=== PATIENT | female | born 1955 | race Caucasian/White ===

== ENCOUNTER 2025-02-27 07:48 | Inpatient (IN) | payer OTHER ==
[~2025-02-27] VITALS: Ht 162.6 cm; Wt 87.5 kg
--- NOTE | 2025-02-27 08:03 | ED.PDOC ---
History of Present Illness HPI Comments This is a 70-year-old female who comes in with chief complaint of status post fall in the bedroom today. Patient states that approximately 1 hour prior to arrival she was coming out of the bathroom and tripped on a rug in her bedroom. This was considered to be a mechanical fall. She states that she did not lose consciousness or did not have any syncope. She states that the right hip pain is a 10/10 at this time. She denies any head trauma and is currently on no blood thinner. According to the paramedics, when they arrived, the patient was still laying on the floor. Chief Complaint: Fall Injury Time Seen by MD: 07:52 Reviewed Notes: Nurses Notes, Manager Beauty Notes, Medications, Allergies (No allergies to medications) Allergies: Coded Allergies: NO KNOWN ALLERGIES (Verified , 06/27/09) Information Source: Patient, Emergency Med Personnel Mode of Arrival: EMS Severity: Moderate Timing: Hours (1 hour prior to arrival) Duration: Since onset Prehospital treatment: Chain Saw Operator Location: Right hip pain with decreased range of motion Past Medical History PAST MEDICAL HISTORY: Cancer (Previous history of breast cancer), DM, High Lipids, HTN Surgical History: Hysterectomy, Tonsillectomy Surgical History (Other): Right lumpectomy on the breast, neck surgery CAR PILOT History: No Pertinent CAR PILOT History Family History Family History: Family hx of DM, Family hx of heart paxton Family History (Other): Dementia Social History Smoker: Quit Greater Than 1 Year Alcohol: Occasionally Drugs: Denies Drug Use Lives In: Home Constitutional: denies: chills, diaphoresis, fatigue, fever, malaise, sweats, weakness, others EENTM: denies: blurred vision, double vision, ear bleeding, ear discharge, ear drainage, ear pain, ear ringing, eye pain, eye redness, hearing loss, mouth pain, mouth swelling, nasal discharge, nose bleeding, nose congestion, nose pain, photophobia, tearing, throat pain, throat swelling, voice changes, others Respiratory: denies: cough, hemoptysis, orthopnea, SOB at rest, shortness of breath, SOB with excertion, stridor, wheezing, others Cardiovascular: denies: chest pain, dizzy spells, diaphoresis, Dyspnea on ex ertion, edema, irregular heart beat, left arm pain, lightheadedness, palpitations, PND, syncope, others Gastrointestinal: denies: abdomen distended, abdominal pain, blood streaked bowels, constipated, diarrhea, dysphagia, difficulty swallowing, hematemesis, melena, nausea, poor appetite, poor fluid intake, rectal bleeding, rectal pain, vomiting, others Genitourinary: denies: abnormal vagina bleeding, burning, dyspareunia, dysuria, flank pain, frequency, hematuria, incontinence, pain, , vagina discharge, urgency, others Neurological: denies: dizziness, fainting, headache, left sided numbness, left sided weakness, numbness, paresthesia, pre-existing deficit, right sided numbness, right sided weakness, seizure, speech problems, tingling, tremors, weakness, others Musculoskeletal: reports: others (Right hip pain with decreased range of motion); denies: back pain, gout, joint pain, joint swelling, muscle pain, muscle stiffness, neck pain Integumetry: denies: bruises, change in color, change in hair/nails, dryness, laceration, lesions, lumps, rash, wounds, others Allergic/Immunocompromised: denies: Difficulty Healing, Frequent Infections, Hives, Itching, others Hematologic/Lymphatic: denies: anemia, blood clots, easy bleeding, easy bruising, swollen glands, others Endocrine: denies: excessive hunger, excessive sweating, excessive thirst, excessive urination, flushing, intolerance to cold, intolerance to heat, unexplained weight gain, unexplained weight loss, others Psychiatric: denies: anxiety, bipolar disorder, depression, hopeless, panic disorder, schizophrenia, sleepless, suicidal, others Physical Exam General Appearance: Moderate Distress HEENT: Normal ENT Inspection, Pharynx Normal, TMs Normal Neck: Full Range of Motion, Non-Tender, Normal, Normal Inspection Respiratory: Chest Non-Tender, Lungs Clear, No Accessory Muscle Use, No Respiratory Distress, Normal Breath Sounds Cardiovascular: No Edema, No JVD, No Murmur, No Gallop, Normal Peripheral Pulses, Regular Rate/Rhythm Breast Exam: Deferred Gastrointestinal: No Organomegaly, Non Tender, No Pulsatile Mass, Normal Bowel Sounds, Soft Genitalia: Deferred Pelvic: Deferred Rectal: Deferred Extremities: No calf tenderness, Normal capillary refill, No pedal edema Musculoskeletal : Location: Right Extremity Location: Hip Apperance: Limited ROM, Tenderness: Moderate Neurologic: Alert, dental office assistant II-XII nml as Tested, No Motor Deficits, Normal Affect, Normal Mood, No Sensory Deficits Cerebellar Function: Normal Reflexes: Normal Skin: Dry, Normal Color, Warm Lymphatic: No Adenopathy Was a procedure done? Was a procedure done?: No Differential Dx Considerations may include: Fracture, strain, contusion X-Ray, Labs, Meds, VS Vital Signs Date Time Temp Pulse Resp B/P (MAP) Pulse Ox O2 Delivery O2 Flow Rate FiO2 02/27/25 08:47 64 12 97 Room Air* 0 21 02/27/25 08:46 97.1 64 12 161/70 (100) 98 97.1 02/27/25 08:37 63 11 161/70 02/27/25 07:54 97.7 68 15 164/85 98 97.7 Lab Test 02/27/25 08:15 Range/Units White Blood Count 6.6 4.4-10.8 10^3/uL Red Blood Count 5.67 H 4.0-5.20 10^6/uL Hemoglobin 16.5 H 12.2-16.2 g/dL Hematocrit 49.9 H 36.0-46.0 % Mean Corpuscular Volume 88.0 80.0-100.0 fL Mean Corpuscular Hemoglobin 29.0 28.0-32.0 pg Mean Corpuscular Hemoglobin Concent 33.0 32.0-36.0 g/dL Red Cell Distribution Width 15.7 H 11.8-14.3 % Platelet Count 271 140-450 10^3/uL Mean Platelet Volume 7.9 6.9-10.8 fL Neutrophils (%) (Auto) 82.0 H 37.0-80.0 % Lymphocytes (%) (Auto) 10.1 10.0-50.0 % Monocytes (%) (Auto) 5.3 0.0-12.0 % Eosinophils (%) (Auto) 2.0 0.0-7.0 % Basophils (%) (Auto) 0.6 0.0-2.0 % Neutrophils # (Auto) 5.4 1.6-8.6 10 ^3/uL Lymphocytes # (Auto) 0.7 0.4-5.4 10 ^3/uL Monocytes # (Auto) 0.3 0-1.3 10 ^3/uL Eosinophils # (Auto) 0.1 0-0.8 10 ^3/uL Basophils # (Auto) 0 0-0.2 10 ^3/uL Nucleated Red Blood Cells 0.2 % Prothrombin Time 10.8 9.3-11.8 sec Prothrombin Time INR 1.02 0.9-1.15 Activated Partial Thromboplast Time 28.5 24.5-34.5 SEC Sodium Level 144 136-145 mmol/L Potassium Level 4.3 3.5-5.1 mmol/L Chloride Level 111 H 98-107 mmol/L Carbon Dioxide Level 20 20-31 mmol/L Anion Gap 13 5-15 Blood Urea Nitrogen 11 9-23 mg/dL Creatinine 1.09 H 0.550-1.02 mg/dL Glomerular Filtration Rate Calc 54 >90 mL/min BUN/Creatinine Ratio 10.1 10.0-20.0 Serum Glucose 146 H 74-106 mg/dL Calcium Level 9.9 8.7-10.4 mg/dL Current Medications Medications (Trade) Dose Ordered Sig/Kaveh Route Start Time Stop Time Status Last Admin Ondansetron HCl (Zofran) 4 mg ONCE ONCE IV 02/27/25 08:00 02/27/25 08:01 DC 02/27/25 08:37 Morphine Sulfate 4 mg ONCE ONCE IV 02/27/25 08:00 02/27/25 08:01 DC 02/27/25 08:37 IV Hep-Lock is being established The patient was given morphine 4 mg IV push for the pain The patient is given Zofran 4 mg IV push for the nausea PROCEDURE(s): RHIP - R HIP COMPLETE XRAY IMPRESSION: : 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 Nondisplaced fracture of the proximal femur with extension into the lesser trochanter. At this time the patient's CBC is within normal limits The chemistry panel is within normal limits. We are contacting the hospitalist for admission. We are not sure if this patient will need orthopedic surgery done so we are contacting [facility] to find out who we would be calling for the orthopedic surgery consult The patient will be admitted at to our facility under med surge We did speak with Dr. Contreras and he will be consulting on the patient. The patient is being admitted at this time Images Reviewed?: Images reviewed and evaluated by me Time of 1ST Reevaluation: 08:06 Reevaluation 1ST: Improved Time of 2ND Reevaluation: 08:45 Reevaluation 2ND: Improved Patient Education/Counseling: Diagnosis, Treatment, Prognosis Family Education/Counseling: No Family Present SEPSIS Sepsis Screen Physician Orders R Hip Complete Xray (02/27/25 07:52) Urinalysis (02/27/25 07:52) Heplock Iv (02/27/25 07:52) * Orthopedic Consult (02/27/25 09:11) Vital Signs Date Time Temp Pulse Resp B/P (MAP) Pulse Ox O2 Delivery O2 Flow Rate FiO2 02/27/25 08:47 64 12 97 Room Air* 0 21 02/27/25 08:46 97.1 64 12 161/70 (100) 98 97.1 02/27/25 08:37 63 11 161/70 02/27/25 07:54 97.7 68 15 164/85 98 97.7 Laboratory Tests Test 02/27/25 08:15 White Blood Count 6.6 10^3/uL (4.4-10.8) Medications Medications Dose Ordered Sig/Kaveh Route Start Time Stop Time Status Last Admin Dose Admin Morphine Sulfate 4 mg ONCE ONCE IV 02/27/25 08:00 02/27/25 08:01 DC 02/27/25 08:37 Ondansetron HCl 4 mg ONCE ONCE IV 02/27/25 08:00 02/27/25 08:01 DC 02/27/25 08:37 Departure 1 Departure Time of Disposition: 08:45 Impression: Primary Impression: Closed right hip fracture Qualified Codes: S72.001A - Fracture of unspecified part of neck of right femur, initial encounter for closed fracture Additional Impression: History of fall Disposition: 09 ADMITTED INPATIENT Admit to: Med Surg Condition: Fair Critical Care Note Critical Care Time?: No Stability Stability form required: Yes Unstable for transfer: ED Physician Assesment (Clinical assesment) Heart Score Heart Score: Heart Score Response (Comments) Value History N/A 0 EKG N/A 0 Age N/A 0 Risk Factors N/A 0 Troponin N/A 0 Total 0 I personally scribed for JORGE L CROCKER MD ([email or web address]) on 02/27/25 at 08:42. Electronically submitted by Nona Pena ([email or web address]). JORGE L CROCKER MD Feb 27, 2025 08:03
[2025-02-27 08:27] LABS: Hematocrit 49.9 % (36.0-46.0); Hemoglobin 16.5 g/dL (12.2-16.2); Mean Corpuscular Hemoglobin 29.0 pg (28.0-32.0); Mean Corpuscular Volume 88.0 fL (80.0-100.0); Nucleated Red Blood Cells % 0.2 %
[2025-02-27 08:33] LABS: Potassium 4.3 mmol/L (3.5-5.1); Sodium 144 mmol/L (136-145)
[2025-02-27 08:34] LABS: Anion Gap 13 (5-15); Calcium 9.9 mg/dL (8.7-10.4); Carbon Dioxide 20 mmol/L (20-31); Chloride 111 mmol/L (98-107)
--- NOTE | 2025-02-27 08:34 | DVH ---
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 Nondisplaced fracture of the proximal femur with extension into the lesser trochanter.
[2025-02-27] MEDS: MORPHINE SULFATE 4 MG/ML SYR/VIAL IV ONE ×2 (08:37→15:58)
[2025-02-27] MEDS: ONDANSETRON HCL 4 MG/2 ML VIAL IV ONE ×2 (08:37→15:57)
[2025-02-27 08:39] LABS: BUN/Creatinine Ratio 10.1 (10.0-20.0); Blood Urea Nitrogen 11 mg/dL (9-23); Glucose 146 mg/dL (74-106)
[2025-02-27 08:42] LABS: INR 1.02 (0.9-1.15); Partial Thromboplastin Time 28.5 SEC (24.5-34.5); Prothrombin Time 10.8 sec (9.3-11.8)
[2025-02-27 08:47] VITALS: PULSE 64; RESP 12; O2SAT 97
--- NOTE | 2025-02-27 10:42 | DVHHP2 ---
Admitting Diagnosis: Right Femur Fracture History of Present Illness HPI Patient is a 70-year-old female with past medical history of hypertension, history of breast cancer status post partial right mastectomy, hyperlipidemia who presents due to right hip pain after a fall in the bathroom. Patient states that she tripped over the bathroom rug. She denied losing consciousness or having syncope. Imaging in the ER was notable for nondisplaced fracture of the proximal femur with extension into the lesser trochanter. Patient was admitted for orthopedic evaluation. Past Medical History Cardiac: HTN Review of Systems Constitutional: No symptom reported Cardiovascular: No symptom reported Gastrointestinal: No symptom reported Musculoskeletal: Leg pain H&P Exam Vital Signs Vital Signs Date Time Temp Pulse Resp B/P (MAP) Pulse Ox O2 Delivery O2 Flow Rate FiO2 02/27/25 10:00 69 12 147/74 (98) 98 02/27/25 08:47 Room Air* 0 21 02/27/25 08:46 97.1 97.1 General Appeara: Well developed Cardiovascular/Chest: Normal Rhythm SEPSIS Sepsis Screen Date sepsis recognized/suspect: Feb 27, 2025 Time Sepsis recognized/suspect: 1020 Recent Procedure: No On Antibiotic Therapy: No Respiratory Rate >20: No Heart Rate >90: No Temp<36 C (96.8 F) or >38.3 C: No SBP <90 or MAP <65 mmHG: No New Acute Mental Status Change: No Is the patient on CPAP, BIPAP,: No Physician Orders R Hip Complete Xray (02/27/25 07:52) Urinalysis (02/27/25 07:52) Heplock Iv (02/27/25 07:52) * Orthopedic Consult (02/27/25 09:11) Admit (02/27/25 10:34) Nitroglycerin Sublingual (Ntrostat Subli (02/27/25 10:45) Morphine Sulfate Injection (02/27/25 10:45) Stat Ekg For Chest Pain (02/27/25 10:34) Notify Md Of Changes From Base (02/27/25 10:34) Paper Hanger For 24 Hours (02/27/25 10:34) Emergency Dysrhythmia Protocol (02/27/25 10:34) Rhythm Strips Once Every Shift (02/27/25 10:34) Oxygen By Nasal Cannula (02/27/25 10:34) Complete Blood Count (02/28/25 05:00) Complete Blood Count (03/01/25 05:00) Complete Blood Count (03/02/25 05:00) Complete Blood Count (03/03/25 05:00) Comprehensive Metabolic Panel (02/28/25 05:00) Comprehensive Metabolic Panel (03/01/25 05:00) Comprehensive Metabolic Panel (03/02/25 05:00) Comprehensive Metabolic Panel (03/03/25 05:00) Regular Diet (02/27/25 Lunch) Pt Request For Service (02/27/25 10:36) Pharmacy To Reconcile Home Med (02/27/25 10:36) Npo After Midnight (02/27/25 10:39) * Drafter Apprentice Consult (02/27/25 ) Npo (Nothing By Mouth) Diet (02/28/25 Breakfast) Vital Signs Date Time Temp Pulse Resp B/P (MAP) Pulse Ox O2 Delivery O2 Flow Rate FiO2 02/27/25 10:00 69 12 147/74 (98) 98 02/27/25 09:54 71 12 160/68 02/27/25 08:47 64 12 97 Room Air* 0 21 02/27/25 08:46 97.1 64 12 161/70 (100) 98 97.1 02/27/25 08:37 63 11 161/70 02/27/25 07:54 97.7 68 15 164/85 98 97.7 Laboratory Tests Test 02/27/25 08:15 White Blood Count 6.6 10^3/uL (4.4-10.8) Medications Medications Dose Ordered Sig/Kaveh Route Start Time Stop Time Status Last Admin Dose Admin Morphine Sulfate 4 mg ONCE ONCE IV 02/27/25 08:00 02/27/25 08:01 DC 02/27/25 08:37 4 MG Ondansetron HCl 4 mg ONCE ONCE IV 02/27/25 08:00 02/27/25 08:01 DC 02/27/25 08:37 4 MG Labs/Xrays Labs Test 02/27/25 08:15 Range/Units White Blood Count 6.6 4.4-10.8 10^3/uL Red Blood Count 5.67 H 4.0-5.20 10^6/uL Hemoglobin 16.5 H 12.2-16.2 g/dL Hematocrit 49.9 H 36.0-46.0 % Mean Corpuscular Volume 88.0 80.0-100.0 fL Mean Corpuscular Hemoglobin 29.0 28.0-32.0 pg Mean Corpuscular Hemoglobin Concent 33.0 32.0-36.0 g/dL Red Cell Distribution Width 15.7 H 11.8-14.3 % Platelet Count 271 140-450 10^3/uL Mean Platelet Volume 7.9 6.9-10.8 fL Neutrophils (%) (Auto) 82.0 H 37.0-80.0 % Lymphocytes (%) (Auto) 10.1 10.0-50.0 % Monocytes (%) (Auto) 5.3 0.0-12.0 % Eosinophils (%) (Auto) 2.0 0.0-7.0 % Basophils (%) (Auto) 0.6 0.0-2.0 % Neutrophils # (Auto) 5.4 1.6-8.6 10 ^3/uL Lymphocytes # (Auto) 0.7 0.4-5.4 10 ^3/uL Monocytes # (Auto) 0.3 0-1.3 10 ^3/uL Eosinophils # (Auto) 0.1 0-0.8 10 ^3/uL Basophils # (Auto) 0 0-0.2 10 ^3/uL Nucleated Red Blood Cells 0.2 % Prothrombin Time 10.8 9.3-11.8 sec Prothrombin Time INR 1.02 0.9-1.15 Activated Partial Thromboplast Time 28.5 24.5-34.5 SEC Sodium Level 144 136-145 mmol/L Potassium Level 4.3 3.5-5.1 mmol/L Chloride Level 111 H 98-107 mmol/L Carbon Dioxide Level 20 20-31 mmol/L Anion Gap 13 5-15 Blood Urea Nitrogen 11 9-23 mg/dL Creatinine 1.09 H 0.550-1.02 mg/dL Glomerular Filtration Rate Calc 54 >90 mL/min BUN/Creatinine Ratio 10.1 10.0-20.0 Serum Glucose 146 H 74-106 mg/dL Calcium Level 9.9 8.7-10.4 mg/dL Assessment/Plan Primary Diagnosis Right Femur Fractur 2' Diagnosis/Co-morbidities 2. Hypertension 3. Hyperlipidemia Plan Plan: - Orthopedics consulted, Dr. Surdyka - Pain medications listed per JUL - Plan for surgery on 02/28. N.p.o. at midnight. - PT eval ordered - Social service consulted for SNF placement for further PT on discharge - Daily CBC and BMP - Full code Plan discussed with: Patient, Daughter BENNIE MCCLELLAND DO Feb 27, 2025 10:42
[2025-02-27] MEDS ORDERED: NITROGLYCERIN 0.4 MG SL TAB SL PRN (10:45)
[2025-02-27] MEDS ORDERED: MORPHINE SULFATE 4 MG/ML SYR/VIAL IV PRN (11:00)
--- NOTE | 2025-02-27 11:11 | DVH ---
EXAM: XY CHEST XRAY 1 VIEW Indication: pain Technique: Single frontal view of the chest was obtained Comparison: None FINDINGS: Lines and Tubes: None Lungs: No focal consolidation. Pleura: No effusion. No pneumothorax. Cardiomediastinal contours: Unremarkable. Atherosclerotic vascular calcifications of the thoracic ao rta are noted. Bones: No acute osseous abnormality. IMPRESSION: No acute cardiopulmonary disease.
[2025-02-27] MEDS ORDERED: ACETAMINOPHEN 325 MG TAB PO PRN (12:15)
[2025-02-27] MEDS: HYDROcodone-ACET 10/325MG TAB PO PRN (15:03)
--- NOTE | 2025-02-27 16:15 | DVH ---
CLINICAL INDICATION: trauma TECHNIQUE: XY R KNEE 3V XRAY Comparison: XY R HIP COMPLETE XRAY on DOS: 02/27/25 FINDINGS/IMPRESSION: : There is no evidence of acute fracture or dislocation. Soft tissues are unremarkable. Degenerative spurring of the patella.
--- NOTE | 2025-02-27 19:36 | DVHINCON2 ---
Consult Note Consult Consult Note History of Present Illness: The patient was evaluated in the Emergency Department following a ground-level fall resulting in right hip pain. The patient denies any preceding dizziness, loss of consciousness, or other traumatic injuries. She has a history of breast cancer in remission and type 2 diabetes mellitus with a reported A1c of less than 8, currently managed with oral medication. No other significant medical history or concerns reported. Pain well controlled during my interview, no apparent distress. Imaging: Right hip X-ray reviewed demonstrates a non-displaced intertrochanteric fracture of the right femur. No dislocation or other acute osseous injury noted. Physical Examination: General: Patient alert, oriented, in no acute distress. Inspection: No open wounds, swelling, or deformity. Palpation: Tenderness to palpation over the right groin region. Range of Motion: Severely limited due to pain. Special Tests: Positive log roll test on the right. Neurovascular: Intact distally; pulses palpable, sensation preserved, capillary refill <2 seconds. Other Extremities: Unremarkable. Assessment: 1. Right intertrochanteric femur fracture closed, non-displaced. 2. History of breast cancer (remission). 3. Type 2 diabetes mellitus (A1c <8). Plan: Discussed findings and diagnosis with the patient in detail. Risks include but not limited to bleeding infection nerve injury hardware failure nonunion malunion chronic pain blood clots cardiac and pulmonary complications amputation and . patient understands the morbidity and mortality of hip fractures in the elderly. Recommended surgical management with cephalomedullary nail fixation of the right hip fracture. Patient is amenable to the surgical plan. Preoperative orders: FOR ER STAFF/BEDSIDE NURSE Patient to remain NPO after midnight. Consent obtained at bedside by ER nursing staff. Surgery scheduled for tomorrow morning at 0715 MORNING. Pain management and medical optimization per ER and hospitalist teams. Continue to monitor for neurovascular changes and maintain fall precautions. All questions answered; patient verbalized understanding and agreement with the plan. Plan discussed with: Patient, Other (BEDSIDE NURSE) Visit Coding Surgery Date of Service if different f: Feb 27, 2025 Billing Provider: DENNIS MUNOZ Surgery Visit Codes: 71788 - INP CONSULT <55 MIN DENNIS MUNOZ Feb 27, 2025 19:36 DANA RIVERA MD Feb 28, 2025 06:47
[2025-02-27 20:13] VITALS: PULSE 75; RESP 16; O2SAT 93
[2025-02-27 21:48] VITALS: BP 109/68; PULSE 78; RESP 17; TEMP 98.7; O2SAT 91
[2025-02-27 22:47] VITALS: BP 109/68; PULSE 78; RESP 19; TEMP 98.7; O2SAT 91
[2025-02-27] MEDS: HYDROcodone-ACET 5/325MG TAB PO PRN (22:58)
[2025-02-28] VITALS (9 sets, daily range): BP systolic 110–135; BP diastolic 64–72; PULSE 67–83; RESP 13–18; TEMP 98–98.3; O2SAT 92–100
[2025-02-28] MEDS: ceFAZolin 2 GM/D5W50ml 50 ML IV ONE (06:40)
[2025-02-28] MEDS: GABAPENTIN 300 MG CAP PO ONE (06:45)
[2025-02-28] MEDS: CELECOXIB 100 MG CAP PO ONE (06:45)
[2025-02-28] MEDS: ACETAMINOPHEN IV 1000 MG/100ML (10MG/ML) IV ONE (06:45)
[2025-02-28] MEDS: GABAPENTIN 300 MG CAP ONE (06:52)
[2025-02-28] MEDS: CELECOXIB 100 MG CAP ONE (06:52)
[2025-02-28] MEDS: ACETAMINOPHEN IV 100 ML IV ONE (06:53)
[2025-02-28] MEDS ORDERED: ONDANSETRON HCL 4 MG/2 ML VIAL ONE (07:05)
[2025-02-28] MEDS ORDERED: LIDOCAINE 1% INJ PF 5ML AMP ONE (07:05)
[2025-02-28] MEDS ORDERED: KETOROLAC TROMETH 30 MG/ML 1ML VIAL ONE (07:05)
[2025-02-28] MEDS ORDERED: BUPIVACAINE/DEXTROSE MPF 0.75% 2 ML AMP IT ONE (07:06)
[2025-02-28] MEDS ORDERED: GLYCOPYRROLATE 0.2 MG/ML 1ML VIAL ONE (07:06)
[2025-02-28] MEDS ORDERED: PROPOFOL 10 MG/ML 20 ML IV ONE ×2 (07:06→08:13)
[2025-02-28 07:08] LABS: Hematocrit 44.1 % (36.0-46.0); Hemoglobin 14.7 g/dL (12.2-16.2); Mean Corpuscular Hemoglobin 29.4 pg (28.0-32.0); Mean Corpuscular Volume 88.1 fL (80.0-100.0); Nucleated Red Blood Cells % 0.1 %
--- NOTE | 2025-02-28 07:15 | DVHOP2 ---
Operative Report - 2 Report Details Date: 02/28/25 Preop Diagnosis: Right hip intertrochanter fracture Postop Diagnosis: Right hip intertrochanter fracture Surgeon: Issac Cook MD Engine Dispatcher: Lior QIU Anesthesiologist: Rui SHEIKH Anesthesia: Regional Implant: ITS Short troch nail Consent: The patient was informed of the risks and benefits of the procedure. These include but are not limited to complications of anesthesia, postoperative infection, incomplete relief of symptoms, recurrence of symptoms, damage to blood vessels, nerves and tendons, deep venous thrombosis, pulmonary embolism and possible need for repeat surgery in the future. Estimated Blood Loss: 100 cc Name of Procedure Performed 1. Open reduction internal fixation of right hip intertrochanter fracture 2. Intraop fluoroscopy Procedure Details Procedure Details: The patient was brought to the operating room and placed supine on a fracture table. General anesthesia was induced, and the right lower extremity was prepped and draped in the usual sterile fashion. The left leg was placed in abduction. Closed reduction of the right hip fracture was performed under fluoroscopic guidance, achieving satisfactory alignment in both AP and lateral planes. A longitudinal incision was made proximal to the greater trochanter. The fascia heladio was incised, and the entry point was established at the tip of the greater trochanter under fluoroscopic guidance. The entry reamer was used to access the medullary canal. A guidewire was advanced down the femoral shaft, and sequential reaming was performed as needed. The appropriate length and diameter intramedullary nail was selected and inserted over the guidewire into the femoral canal. Proximal and distal interlocking screws were placed using the targeting device and confirmed with fluoroscopy. The fracture reduction and hardware position were confirmed to be satisfactory on final imaging. The wound was irrigated and hemostasis achieved. The fascia and subcutaneous ti ssues were closed in layers. The skin was closed with yolande (or sutures). Sterile dressings were applied. The patient tolerated the procedure well and was transferred to the recovery room in stable condition. Specimen: In the preoperative holding area, the consent was reviewed and the appropriate extremity was verified by the patient and marked with my initials. The patient was then transferred to the operating theatre. Patient was placed on a fracture table. Appropriate anesthetia was induced. All bony prominences were well padded. A time out was performed verifying the side and site of surgery according to standard protocol. Preoperative antibiotics were given. The extremity was then prepped and draped in the usual sterile fashion. Using c-arm, the fracture was reduced using the fracture table and a combination of maneuvers including traction, internal rotation, and flexion. An incision was made over the greater trochanter confirming correct position with c-arm. A guide wire was drilled into the tip of the greater trochanter, centered A to P. We used the starting reamer to gain entry to the femoral canal. A short nail was then placed. A guide pin was then drilled in the center of the femoral head confirmed using fluoroscopy. We measured the screw lengths. Using a cannulated drill, we drilled the lateral cortex. The screws were then introduced. Once positioned, we once again confirmed that the screws were with the femoral head. Cerament placed into fracture site Attention was turned distally. We used the targeting device to drill through the nail and the femur. This was measured using the device, and the screw was placed with good purchase. Final xrays were taken showing the hardware in perfect position. The wound was copiously irrigated. No fractures were seen on the rest of the femur. The fascia was closed with #1 Vicryl, the skin closed #2-0 Vicryl, and yoalnde. A dry sterile dressing was placed on the patient. The patient was transferred to the recovery room in stable condition. Condition Good Disposition Still a Patient ISSAC COOK MD Feb 28, 2025 07:15
[2025-02-28] MEDS ORDERED: AMLO1TAB21 PO (07:22)
[2025-02-28] MEDS ORDERED: LETR2.5T6 PO (07:22)
[2025-02-28] MEDS ORDERED: EXEM25TA4 PO (07:22)
[2025-02-28] MEDS ORDERED: SERT-206 PO (07:22)
[2025-02-28] MEDS ORDERED: ATOR20TA50 PO (07:22)
[2025-02-28] MEDS ORDERED: DAPA1TAB4 PO (07:22)
[2025-02-28 07:24] LABS: Alanine Aminotransferase 16 U/L (7-40); Albumin 4.0 g/dL (3.2-4.8); Alkaline Phosphatase 88 U/L (46-116); Anion Gap 9 (5-15); BUN/Creatinine Ratio 13.6 (10.0-20.0); Blood Urea Nitrogen 16 mg/dL (9-23); Calcium 8.9 mg/dL (8.7-10.4); Carbon Dioxide 24 mmol/L (20-31); Potassium 4.2 mmol/L (3.5-5.1); Sodium 143 mmol/L (136-145); Total Protein 6.4 g/dL (5.7-8.2)
[2025-02-28 07:25] LABS: Bilirubin, Total 0.5 mg/dL (0.2-1.0)
[2025-02-28 07:40] LABS: Chloride 110 mmol/L (98-107); Glucose 145 mg/dL (74-106)
[2025-02-28] MEDS: BUPIVACAINE 0.25% INJ 50ML VIAL ONE (07:49)
[2025-02-28] MEDS ORDERED: FLUMAZENIL 0.1 MG/ML INJ 10ML MDV IV PRN (08:45)
[2025-02-28] MEDS ORDERED: ONDANSETRON HCL 4 MG/2 ML VIAL IV PRN (08:45)
[2025-02-28] MEDS ORDERED: NALOXONE HCL 0.4 MG/ML VIAL IV PRN (08:45)
[2025-02-28] MEDS ORDERED: HYDROmorphone HCL 2 MG/ML VL/or syr IV PRN (08:45)
[2025-02-28] MEDS ORDERED: fentaNYL CITRATE 100 MCG/2 ML VL IV PRN (08:45)
[2025-02-28] MEDS ORDERED: hydrALAZINE HCL 20 MG/ML VL IV PRN (08:45)
--- NOTE | 2025-02-28 09:58 | DVH ---
CLINICAL INDICATION: S/P ORIF RIGHT HIP TECHNIQUE: XY R HIP COMPLETE XRAY Comparison: XY R HIP COMPLETE XRAY on DOS: 02/27/25 FINDINGS/IMPRESSION: : There is no evidence of acute fracture or dislocation. Small volume gas in the right hip joint. Right hip ORIF transfixing right proximal femur fracture. Severe degenerative changes of the left hip .
--- NOTE | 2025-02-28 12:03 | DVH ---
C-ARM FLUOROSCOPY: PROCEDURE: Right hip ORIF FLUOROSCOPY TIME: 80.5 seconds Air Kerma: 9.1 mgy FINDINGS: Spot intraoperative C arm radiographs demonstrating right hip ORIF. IMPRESSION: Please refer to surgical report for detailed findings.
--- NOTE | 2025-02-28 12:31 | DVHPN2 ---
Progress Note - Dictate Date Seen: Feb 28, 2025 Medical Necessity Reason Pt with a Central, PICC or Fol: No Subjective Patient s/p ORIF. vital signs Vital Sign Date Time Temp Pulse Resp B/P (MAP) Pulse Ox O2 Delivery O2 Flow Rate FiO2 02/28/25 09:30 67 13 117/54 (75) 94 02/28/25 09:30 Nasal Cannula 2.0 02/28/25 09:30 94 02/28/25 08:26 98.7 98.7 Total Intake and Output 02/27/25 02/27/25 02/28/25 15:00 23:00 07:00 Intake Total 100 ml Output Total 0 ml Balance 100 ml medications Current Medications Medications Dose Ordered Sig/Kaveh Route Start Time Stop Time Status Last Admin Dose Admin Nitroglycerin 0.4 mg Q5MINP PRN SL 02/27/25 10:45 Morphine Sulfate 2 mg Q30M PRN IV 02/27/25 11:00 Acetaminophen 325 mg Q6HP PRN PO 02/27/25 12:15 Acetaminophen/ Hydrocodone Bitart 1 tab Q6HP PRN PO 02/27/25 12:15 02/27/25 22:58 1 TAB Cefazolin Sodium 50 ml @ 100 mls/hr Q8HR IV 02/28/25 14:00 03/01/25 06:29 objective General: Comfortable laboratory and microbiology Laboratory Tests 02/28/25 05:59 Test 02/28/25 05:59 Range/Units Serum Glucose 145 H 74-106 mg/dL Problem List Primary Diagnosis Right Femur Fractur 2' Diagnosis/Co-morbidities 2. Hypertension 3. Hyperlipidemia Plan Plan: - Orthopedics consulted, Dr. Cook. S/p ORIF. - Pain medications listed per JUL - PT eval ordered - Social service consulted for SNF placement for further PT on discharge. Anticipated DC on 03/01. - Daily CBC and BMP - Full code Dietary Evaluation Review Comments: Nutrition Recommendation: 1) Consider cardiac diet if PO intake >75% 2) Lui 1 pk BID 3) Consider Ensure High Protein if PO intake <50% 4) Monitor NPO status/PO intake, lab values, weight trend, and I/O Expected Outcomes/Goals: Wound to improve Fu 3-5 days Plan discussed with: BENNIE Negron DO Feb 28, 2025 12:31
[2025-02-28] MEDS: ceFAZolin 1GM/50ML 50 ML IV SCH (13:43)
[2025-03-01 01:00] VITALS: BP 128/73; PULSE 66; RESP 18; TEMP 98.3; O2SAT 93
[2025-03-01 05:00] VITALS: BP 118/62; PULSE 64; RESP 18; TEMP 97.6; O2SAT 93
[2025-03-01 06:53] LABS: Hematocrit 44.2 % (36.0-46.0); Hemoglobin 14.5 g/dL (12.2-16.2); Mean Corpuscular Hemoglobin 29.3 pg (28.0-32.0); Mean Corpuscular Volume 89.7 fL (80.0-100.0); Nucleated Red Blood Cells % 0.0 %
[2025-03-01 07:18] LABS: Albumin 4.0 g/dL (3.2-4.8); Alkaline Phosphatase 80 U/L (46-116); Anion Gap 11 (5-15); BUN/Creatinine Ratio 17.2 (10.0-20.0); Bilirubin, Total 0.3 mg/dL (0.2-1.0); Blood Urea Nitrogen 16 mg/dL (9-23); Calcium 9.1 mg/dL (8.7-10.4); Total Protein 6.5 g/dL (5.7-8.2)
[2025-03-01 07:22] LABS: Sodium 139 mmol/L (136-145)
[2025-03-01 07:23] LABS: Alanine Aminotransferase < 9 U/L (7-40); Carbon Dioxide 19 mmol/L (20-31); Chloride 109 mmol/L (98-107); Glucose 182 mg/dL (74-106); Potassium 4.4 mmol/L (3.5-5.1)
[2025-03-01 09:00] VITALS: BP 143/69; PULSE 62; RESP 18; TEMP 97.6; O2SAT 98
[2025-03-01] MEDS: FLUCONAZOLE 100 MG TAB PO ONE (12:30)
[2025-03-01 12:41] VITALS: BP 143/76; PULSE 69; RESP 18; TEMP 97.7; O2SAT 94
--- NOTE | 2025-03-01 13:32 | DVHDS2 ---
Discharge Summary Date of Admission Feb 27, 2025 at 10:34 Date of Discharge: Mar 01, 2025 Labs/Diagnostic Data: Laboratory Results Test 03/01/25 06:17 02/28/25 08:35 02/27/25 08:15 White Blood Count 8.9 10^3/uL (4.4-10.8) Red Blood Count 4.93 10^6/uL (4.0-5.20) Hemoglobin 14.5 g/dL (12.2-16.2) Hematocrit 44.2 % (36.0-46.0) Mean Corpuscular Volume 89.7 fL (80.0-100.0) Mean Corpuscular Hemoglobin 29.3 pg (28.0-32.0) Mean Corpuscular Hemoglobin Concent 32.7 g/dL (32.0-36.0) Red Cell Distribution Width 15.3 % (11.8-14.3) Platelet Count 205 10^3/uL (140-450) Mean Platelet Volume 7.9 fL (6.9-10.8) Neutrophils (%) (Auto) 91.4 % (37.0-80.0) Lymphocytes (%) (Auto) 3.7 % (10.0-50.0) Monocytes (%) (Auto) 4.5 % (0.0-12.0) Eosinophils (%) (Auto) 0.4 % (0.0-7.0) Basophils (%) (Auto) 0.0 % (0.0-2.0) Neutrophils # (Auto) 8.1 10 ^3/uL (1.6-8.6) Lymphocytes # (Auto) 0.3 10 ^3/uL (0.4-5.4) Monocytes # (Auto) 0.4 10 ^3/uL (0-1.3) Eosinophils # (Auto) 0 10 ^3/uL (0-0.8) Basophils # (Auto) 0 10 ^3/uL (0-0.2) Nucleated Red Blood Cells 0.0 % Sodium Level 139 mmol/L (136-145) Potassium Level 4.4 mmol/L (3.5-5.1) Chloride Level 109 mmol/L (98-107) Carbon Dioxide Level 19 mmol/L (20-31) Anion Gap 11 (5-15) Blood Urea Nitrogen 16 mg/dL (9-23) Creatinine 0.93 mg/dL (0.550-1.02) Glomerular Filtration Rate Calc 66 mL/min (>90) BUN/Creatinine Ratio 17.2 (10.0-20.0) Serum Glucose 182 mg/dL (74-106) Calcium Level 9.1 mg/dL (8.7-10.4) Total Bilirubin 0.3 mg/dL (0.2-1.0) Aspartate Amino Transferase (AST) 17 U/L (13-40) Alanine Aminotransferase (ALT) < 9 U/L (7-40) Alkaline Phosphatase 80 U/L (46-116) Total Protein 6.5 g/dL (5.7-8.2) Albumin 4.0 g/dL (3.2-4.8) POC Glucose 159 mg/dl (70-106) Prothrombin Time 10.8 sec (9.3-11.8) Prothrombin Time INR 1.02 (0.9-1.15) Activated Partial Thromboplast Time 28.5 SEC (24.5-34.5) Other Laboratory Tests 03/01/25 06:17 Brief Hx & Hospital Course: Patient is a 70-year-old female who presents after a fall. Patient was subsequently noted to have a right nondisplaced fracture of the proximal femur with extension to the lesser trochanter. Orthopedics was consulted. Patient underwent ORIF. She subsequently ambulated with physical therapy. Patient had limited ambulation due to pain. Patient was discharged to SNF for further physical therapy. Patient's follow-up with orthopedics in 2 weeks. Overall, patient discharged in stable condition. Condition at Discharge: Good Final Diagnosis/Problems List Right Femur Fracture Secondary Diagnosis: Hypoxic Respiratory Failure due to Altelectasis Constipation Discharge Disposition: [facility] Facility Discharge Instruct/Medications Diet: Consistent carbohydrate Activity: Light activity Follow Up/Referral: Follow up with orthopedics in 2 weeks. Scheduled Amlodipine Besylate (Amlodipine Besylate), 1 TAB PO DAILY, (Reported) Atorvastatin Calcium (Atorvastatin Calcium), 1 TAB PO DAILY, (Reported) Dapagliflozin Propanediol (Farxiga), 1 TAB PO DAILY, (Reported) Exemestane (Exemestane), 1 TAB PO DAILY, (Reported) Letrozole (Letrozole), 1 TAB PO DAILY, (Reported) Sertraline Hcl (Sertraline Hcl), 1 TAB PO DAILY, (Reported) Discharge Statement: "Patient was advised to return to the ER or call 911 if any headaches, dizziness, shortness of breath, chest pain, abdominal pain, bleeding, fevers, or worsening of medical condition. Patient was counseled about treatment plan, medications, possible side effects, patientverbalized understanding. All questions were answered to the best of my ability. This discharge took greater then 30 minutes in planning, reviewing documentation, counseling the patient, and discussing with other team members." ASSESSMENT ASSESSMENT Assessment Femur Fracture BENNIE MCCLELLAND DO Mar 01, 2025 13:32
[2025-03-01 14:50] VITALS: BP 143/76; PULSE 69; RESP 18; TEMP 97.7; O2SAT 94
== END 2025-03-01 16:20 | DRG 480 ==
LOC: ER 07:48 → EDBD 07:48 → OVERFLOW 10:34 → ER 10:35 → EAST 21:38
PROVIDERS: ADMIT Student in an Organized Health Care Education/Training Program; ATTEND Student in an Organized Health Care Education/Training Program
PROC: 0QS636Z Reposition Right Upper Femur with Intramedullary Internal Fixation Device, Percutaneous Approach (ICD-10-PCS; principal; 2025-02-28 07:08)
DX: S72.144A Nondisplaced intertrochanteric fracture of right femur, initial encounter for closed fracture (principal); J96.91 Respiratory failure, unspecified with hypoxia; J98.11 Atelectasis; I10 Essential (primary) hypertension; K59.00 Constipation, unspecified; E78.5 Hyperlipidemia, unspecified; E11.9 Type 2 diabetes mellitus without complications; Z90.710 Acquired absence of both cervix and uterus; Z85.3 Personal history of malignant neoplasm of breast; Z83.3 Family history of diabetes mellitus; Z87.891 Personal history of nicotine dependence; Z90.11 Acquired absence of right breast and nipple; W18.39XA Other fall on same level, initial encounter; Y93.89 Activity, other specified; Y92.89 Other specified places as the place of occurrence of the external cause; Y99.8 Other external cause status
CPT/HCPCS: 36415; 71045; 73502; 73562; 76000; 80048; 80053; 82962; 85025; 85610; 85730; 96374; 96375; 97116; 97163; 97530; G0378; J0131; J0169; J1100; J1885; J2405; J2704; J3490